=== PATIENT | male | born 1955 | race Caucasian/White ===

== ENCOUNTER 2019-02-22 07:10 | Day surgery (SDC) | payer OTHER ==
[~2019-02-22] VITALS: Ht 180.3 cm; Wt 89.4 kg
[~2019-02-22 07:10] MED LIST: Daily Multiple1 EACH PO; FISH1000; GLUCOSAMINE MS PO; Omega 3 1,0001 EACH PO; Sleep Aid25 M1 PO
== END 2019-02-22 09:13 | disposition home or self-care (01) ==
LOC: ORSCSDS 07:10
PROVIDERS: Internal Medicine Gastroenterology
PROC: 0DBL8ZX Excision of Transverse Colon, Via Natural or Artificial Opening Endoscopic, Diagnostic (ICD-10-PCS; principal; 2019-02-22 08:30)
PROC: 0DBM8ZX Excision of Descending Colon, Via Natural or Artificial Opening Endoscopic, Diagnostic (ICD-10-PCS; principal; 2019-02-22 08:30)
DX: Z12.11 Encounter for screening for malignant neoplasm of colon (principal); D12.3 Benign neoplasm of transverse colon; D12.4 Benign neoplasm of descending colon; K57.30 Diverticulosis of large intestine without perforation or abscess without bleeding; K64.8 Other hemorrhoids; Z85.038 Personal history of other malignant neoplasm of large intestine; Z86.010 Personal history of colon polyps; E78.5 Hyperlipidemia, unspecified
CPT/HCPCS: 88305; J0461; J2405; J2704; J7120

== ENCOUNTER → 2019-04-27 | Outpatient (CLI) | payer OTHER ==
[2019-04-27 10:29] LABS: Source, Urine Clean Catch
[2019-04-27 10:45] LABS: Appearance, Urine Clear (Clear); Bilirubin, Urine Neg (Neg); Blood, Urine Neg (Neg); Color, Urine Yellow (P-Yellow); Glucose Qualitative, Urine Neg (Normal); Ketones, Urine Neg (Neg); Leukocyte Esterase, Urine Neg (Neg); Nitrite, Urine Neg (Neg); Protein, Urine Neg (Neg); Urobilinogen, Urine NORM (Normal)
== END | disposition home or self-care (01) ==
LOC: LAB EV 10:22 → LAB FUT 04-20 12:05
PROVIDERS: Internal Medicine Gastroenterology
DX: E88.09 Other disorders of plasma-protein metabolism, not elsewhere classified (principal)
CPT/HCPCS: 81003

== ENCOUNTER → 2020-11-01 | Outpatient (CLI) | payer MEDICARE | LOC: LAB SHORT 14:10 → LAB 14:10 | DX: L08.9 Local infection of the skin and subcutaneous tissue, unspecified (principal) | CPT/HCPCS: 87070; 87077; 87147; 87186; 87205 ==

== ENCOUNTER 2020-11-22 08:48 | Day surgery (SDC) | payer MEDICARE ==
[~2020-11-22] VITALS: Ht 180.3 cm; Wt 90.9 kg
--- NOTE | 2020-11-22 10:30 | NUR ---
11/22/20 1030 Samantha Mandujano PT HAS 2 SMALL OPEN WOUNDS ON HIS ABDOMEN. THEY ARE SCABBED OVER. BOBBY WIPE AND CLIPPERS WERE NOT USED ON THE AREA.
--- NOTE | 2020-11-22 13:02 | NUR ---
11/22/20 1302 Kamilla Arredondo NO SPECIMEN PER DR. SAMARIA M.D. RBVO Rosmery ARREDONDO RN
== END 2020-11-22 14:00 | disposition home or self-care (01) ==
LOC: ORSCSDS 08:48 → ORD 11-24 07:30 → ORSCMMR 11-24 07:30
PROVIDERS: Surgery
PROC: 0WUF0JZ Supplement Abdominal Wall with Synthetic Substitute, Open Approach (ICD-10-PCS; principal; 2020-11-22 10:00)
DX: K43.2 Incisional hernia without obstruction or gangrene (principal); E78.5 Hyperlipidemia, unspecified
CPT/HCPCS: A9270; C1781; J0690; J1100; J1885; J2250; J2370; J2405; J2704; J3010; J7120

== ENCOUNTER → 2021-01-31 | Outpatient (CLI) | payer MEDICARE ==
[2021-01-31 09:47] LABS: Hemoglobin 16.3 g/dL (13.5-17.5); Mean Corpuscular HGB 30.2 pg (26.0-34.0); Mean Corpuscular HGB Conc 33.3 g/dL (31.5-36.5); Mean Corpuscular Volume 91 fL (80-100); RDW Coefficient Variation 14.4 % (11.7-14.2); RDW Standard Deviation 47.8 fL (35.1-46.3); White Blood Cell Count 3.29 K/mm3 (4.00-11.30)
[2021-01-31 10:22] LABS: Platelet Count 97 K/mm3 (150-400)
[2021-01-31 10:50] LABS: BAND PERCENT MAN 12 % (0-8); BASOPHILS ABSOLUTE MAN 0.06 K/mm3 (0.00-0.23); BASOPHILS PERCENT MAN 2 % (0-2); EOSINOPHILS ABSOLUTE MAN 0.09 K/mm3 (0.00-0.68); EOSINOPHILS PERCENT MAN 3 % (0-6); LYMPHOCYTES ABSOLUTE MAN 0.55 K/mm3 (0.84-5.20); LYMPHOCYTES PERCENT MAN 17 % (21-46); MONOCYTES ABSOLUTE MAN 0.52 K/mm3 (0.16-1.47); MONOCYTES PERCENT MAN 16 % (4-13); NEUTROPHILS ABSOLUTE MAN 2.03 K/mm3 (1.96-9.15); SEG NEUTROPHILS PERCENT MAN 50 % (41-73); TOTAL CELLS COUNTED 100
== END | disposition home or self-care (01) ==
LOC: LAB 09:41 → LAB SHORT 09:41
PROVIDERS: Physician Assistant
DX: L03.311 Cellulitis of abdominal wall (principal)
CPT/HCPCS: 85025

== ENCOUNTER → 2021-02-13 | Outpatient (CLI) | payer MEDICARE | LOC: LAB SHORT 11:45 | DX: L08.9 Local infection of the skin and subcutaneous tissue, unspecified (principal); L92.0 Granuloma annulare; L53.8 Other specified erythematous conditions; L57.8 Other skin changes due to chronic exposure to nonionizing radiation; L81.4 Other melanin hyperpigmentation; L85.3 Xerosis cutis; Z71.89 Other specified counseling | CPT/HCPCS: 87070; 87077; 87186; 87205 ==

== ENCOUNTER → 2021-10-04 | Outpatient (CLI) | payer MEDICARE | END | disposition home or self-care (01) | LOC: LAB SHORT 13:54 → LAB 13:54 | DX: L92.0 Granuloma annulare (principal); L08.9 Local infection of the skin and subcutaneous tissue, unspecified; L57.8 Other skin changes due to chronic exposure to nonionizing radiation; L81.4 Other melanin hyperpigmentation; Z79.899 Other long term (current) drug therapy; Z71.89 Other specified counseling | CPT/HCPCS: 87070; 87077; 87186; 87205 ==

== ENCOUNTER → 2023-02-11 | Outpatient (CLI) | payer MEDICARE | LOC: LAB SHORT 13:15 → LAB 13:15 | DX: L08.0 Pyoderma (principal); T81.40XA Infection following a procedure, unspecified, initial encounter | CPT/HCPCS: 87070; 87077; 87186; 87205 ==

== ENCOUNTER → 2023-02-12 | Outpatient (CLI) | payer MEDICARE | END | disposition home or self-care (01) | LOC: LAB SHORT 14:22 → LAB 14:22 | DX: L98.9 Disorder of the skin and subcutaneous tissue, unspecified (principal) | CPT/HCPCS: 87071; 87075; 87076; 87185; 87205 ==

== ENCOUNTER → 2023-04-24 | Outpatient (CLI) | payer MEDICARE | END | disposition home or self-care (01) | LOC: LAB 12:11 → LAB SHORT 12:11 | DX: L08.9 Local infection of the skin and subcutaneous tissue, unspecified (principal) | CPT/HCPCS: 87070; 87077; 87186; 87205 ==

== ENCOUNTER 2023-05-15 08:33 | Day surgery (SDC) | payer MEDICARE | END 2023-05-15 22:47 | disposition home or self-care (01) | LOC: US 08:33 | DX: K74.69 Other cirrhosis of liver (principal); R18.8 Other ascites; K76.6 Portal hypertension | CPT/HCPCS: 49083 ==

== ENCOUNTER → 2023-05-22 | Outpatient (CLI) | payer MEDICARE | END | disposition home or self-care (01) | LOC: LAB 12:10 → LAB SHORT 12:10 | DX: L08.0 Pyoderma (principal) | CPT/HCPCS: 87070; 87077; 87186; 87205 ==

== ENCOUNTER 2023-05-30 08:33 | Day surgery (SDC) | payer MEDICARE | END 2023-05-30 23:01 | disposition home or self-care (01) | LOC: US 08:33 | DX: K76.6 Portal hypertension (principal); K74.69 Other cirrhosis of liver; R18.8 Other ascites | CPT/HCPCS: 76705 ==

== ENCOUNTER 2023-07-16 02:20 | Day surgery (SDC) | payer MEDICARE ==
[2023-07-16] MEDS ORDERED: Lidocaine HCl 4% Cream 5 GM ONE (10:34)
== END 2023-07-16 23:25 | disposition home or self-care (01) ==
LOC: WOUND 02:20
DX: S41.101D Unspecified open wound of right upper arm, subsequent encounter (principal); S51.802D Unspecified open wound of left forearm, subsequent encounter; X58.XXXD Exposure to other specified factors, subsequent encounter
CPT/HCPCS: A6213; A9270

== ENCOUNTER 2023-07-31 04:31 | Day surgery (SDC) | payer MEDICARE | END 2023-07-31 22:52 | disposition home or self-care (01) | LOC: WOUND 04:31 | DX: S51.802D Unspecified open wound of left forearm, subsequent encounter (principal); S41.101D Unspecified open wound of right upper arm, subsequent encounter; X58.XXXD Exposure to other specified factors, subsequent encounter | CPT/HCPCS: A6213; G0463 ==

== ENCOUNTER 2023-08-07 02:59 | Day surgery (SDC) | payer MEDICARE | END 2023-08-07 22:42 | disposition home or self-care (01) | LOC: WOUND 02:59 | DX: S41.101D Unspecified open wound of right upper arm, subsequent encounter (principal); S51.802D Unspecified open wound of left forearm, subsequent encounter; X58.XXXD Exposure to other specified factors, subsequent encounter | CPT/HCPCS: G0463 ==

== ENCOUNTER 2023-08-14 03:39 | Day surgery (SDC) | payer MEDICARE | END 2023-08-14 23:07 | disposition home or self-care (01) | LOC: WOUND 03:39 | DX: S51.802D Unspecified open wound of left forearm, subsequent encounter (principal); S41.101D Unspecified open wound of right upper arm, subsequent encounter | CPT/HCPCS: G0463 ==

== ENCOUNTER 2024-03-02 08:04 | Day surgery (SDC) | payer MEDICARE ==
[~2024-03-02] VITALS: Ht 172.7 cm; Wt 83.0 kg
--- NOTE | 2024-03-02 07:14 | NUR ---
03/02/24 [address] WALLER, SEE ANESTHESIA RECORDS.
[~2024-03-02 08:04] MED LIST changes: +CARV3.125 PO; +FURO20 PO; +Lactated Ringer's 1,000 ML IV SCH; +SPIR25 PO
[2024-03-02 09:36] VITALS: BP 136/67
--- NOTE | 2024-03-02 09:39 | NUR ---
History, Chart, Medications and Allergies reviewed before start of procedure. Patient confirms NPO status and agrees with scheduled surgery.
[2024-03-02] MEDS ORDERED: propofoL 20 ML IV ONE (09:53)
[2024-03-02 10:24] VITALS: BP 109/64
--- NOTE | 2024-03-02 10:39 | NUR ---
Discharge instructions reviewed with patient. Patient verbalizes understanding. Copy given to patient to take home. Patient States Post-Procedure ride home has been arranged. Discharged via wheelchair to private car for ride home.
== END 2024-03-02 10:40 | disposition home or self-care (01) ==
LOC: ORSCMMR 08:04 → ORD 09:30 → ORSCMMR 10:40
PROVIDERS: Internal Medicine Gastroenterology
PROC: 0DBP8ZX Excision of Rectum, Via Natural or Artificial Opening Endoscopic, Diagnostic (ICD-10-PCS; principal; 2024-03-02 09:30)
PROC: 0DBN8ZX Excision of Sigmoid Colon, Via Natural or Artificial Opening Endoscopic, Diagnostic (ICD-10-PCS; principal; 2024-03-02 09:30)
PROC: 0DBK8ZX Excision of Ascending Colon, Via Natural or Artificial Opening Endoscopic, Diagnostic (ICD-10-PCS; principal; 2024-03-02 09:30)
DX: Z12.11 Encounter for screening for malignant neoplasm of colon (principal); Z85.038 Personal history of other malignant neoplasm of large intestine; Z90.49 Acquired absence of other specified parts of digestive tract; Z86.0100 Personal history of colon polyps, unspecified; K63.5 Polyp of colon; D12.5 Benign neoplasm of sigmoid colon; D12.2 Benign neoplasm of ascending colon; K62.1 Rectal polyp; D61.818 Other pancytopenia; K76.6 Portal hypertension; Z79.899 Other long term (current) drug therapy
CPT/HCPCS: 88305; J2704; J7120

== ENCOUNTER 2024-05-04 | Day surgery (SDC) | payer MEDICARE ==
[~2024-05-04] MED LIST changes: -Lactated Ringer's 1,000 ML IV SCH
[2024-05-04] MEDS ORDERED: Lidocaine HCl 4% Cream 5 GM ONE (12:37)
== END 2024-05-04 23:00 ==
LOC: WOUND
DX: S81.801A Unspecified open wound, right lower leg, initial encounter (principal); S51.802A Unspecified open wound of left forearm, initial encounter; I10 Essential (primary) hypertension; X58.XXXA Exposure to other specified factors, initial encounter
CPT/HCPCS: A6213; A9270; G0463

== ENCOUNTER → 2024-05-04 | Outpatient (CLI) | payer MEDICARE | END | disposition home or self-care (01) | LOC: LAB 11:52 → LAB SHORT 11:52 | DX: L08.0 Pyoderma (principal) | CPT/HCPCS: 87070; 87077; 87186; 87205 ==

== ENCOUNTER 2024-05-11 01:37 | Day surgery (SDC) | payer MEDICARE ==
[2024-05-11] MEDS ORDERED: Lidocaine HCl 4% Cream 5 GM ONE (10:10)
== END 2024-05-11 23:00 | disposition home or self-care (01) ==
LOC: WOUND 01:37
DX: L97.812 Non-pressure chronic ulcer of other part of right lower leg with fat layer exposed (principal); L97.112 Non-pressure chronic ulcer of right thigh with fat layer exposed; L98.492 Non-pressure chronic ulcer of skin of other sites with fat layer exposed; L08.0 Pyoderma
CPT/HCPCS: A6213; A9270

== ENCOUNTER 2024-05-18 09:34 | Day surgery (SDC) | payer MEDICARE ==
[2024-05-18] MEDS ORDERED: Lidocaine HCl 4% Cream 5 GM ONE (14:51)
== END 2024-05-18 23:00 | disposition home or self-care (01) ==
LOC: WOUND 09:34
DX: L97.112 Non-pressure chronic ulcer of right thigh with fat layer exposed (principal); L97.212 Non-pressure chronic ulcer of right calf with fat layer exposed; L98.492 Non-pressure chronic ulcer of skin of other sites with fat layer exposed; L88 Pyoderma gangrenosum; D76.3 Other histiocytosis syndromes
CPT/HCPCS: A6213; A9270

== ENCOUNTER 2024-05-25 00:38 | Day surgery (SDC) | payer MEDICARE ==
[2024-05-25] MEDS ORDERED: Lidocaine HCl 4% Cream 5 GM ONE (13:32)
== END 2024-05-25 22:49 | disposition home or self-care (01) ==
LOC: WOUND
DX: L97.112 Non-pressure chronic ulcer of right thigh with fat layer exposed (principal); L97.212 Non-pressure chronic ulcer of right calf with fat layer exposed; L98.492 Non-pressure chronic ulcer of skin of other sites with fat layer exposed; L08.0 Pyoderma
CPT/HCPCS: A6213; A9270

== ENCOUNTER 2024-06-01 00:43 | Day surgery (SDC) | payer MEDICARE ==
[2024-06-01] MEDS ORDERED: Lidocaine HCl 4% Cream 5 GM ONE (12:43)
== END 2024-06-01 23:00 | disposition home or self-care (01) ==
LOC: WOUND 00:43
DX: L97.212 Non-pressure chronic ulcer of right calf with fat layer exposed (principal); L97.112 Non-pressure chronic ulcer of right thigh with fat layer exposed; L98.492 Non-pressure chronic ulcer of skin of other sites with fat layer exposed; L08.0 Pyoderma; D76.3 Other histiocytosis syndromes
CPT/HCPCS: A6213; A9270

== ENCOUNTER → 2024-06-07 | Outpatient (CLI) | payer MEDICARE ==
[~2024-06-07] MED LIST changes: +ACET500 PO; +Calcium Carbon500 MG PO
[2024-06-07 07:45] LABS: Hematocrit 34.8 % (37.0-53.0); Hemoglobin 11.4 g/dL (13.5-17.5); Mean Corpuscular HGB 30.5 pg (26.0-34.0); Mean Corpuscular HGB Conc 32.8 g/dL (31.5-36.5); Mean Corpuscular Volume 93 fL (80-100); Mean Platelet Volume 9.8 fL (9.1-12.4); Platelet Count 129 K/mm3 (150-400); RDW Coefficient Variation 17.3 % (11.7-14.2); RDW Standard Deviation 59.8 fL (35.1-46.3); Red Blood Cell Count 3.74 M/mm3 (4.30-5.90)
[2024-06-07 07:54] LABS: BASOPHILS ABSOLUTE AUTO 0.02 K/mm3 (0.00-0.23); BASOPHILS PERCENT AUTO 2 % (0-2); EOSINOPHILS PERCENT AUTO 0 % (0-6); IMMATURE GRAN ABSOLUTE AUTO 0.01 K/mm3 (0.00-0.10); IMMATURE GRAN PERCENT AUTO 1 % (0-1); LYMPHOCYTES ABSOLUTE AUTO 0.34 K/mm3 (0.84-5.20); LYMPHOCYTES PERCENT AUTO 35 % (21-46); MONOCYTES ABSOLUTE AUTO 0.21 K/mm3 (0.16-1.47); MONOCYTES PERCENT AUTO 22 % (4-13); NEUTROPHILS ABSOLUTE AUTO 0.38 K/mm3 (1.96-9.15); NEUTROPHILS PERCENT AUTO 40 % (41-73)
[2024-06-07 08:02] LABS: White Blood Cell Count 0.96 K/mm3 (4.00-11.30)
[2024-06-07 08:21] LABS: Albumin, Blood 2.1 g/dL (3.4-5.0); Albumin/Globulin Ratio 0.5 (0.8-1.8); Bilirubin, Total 1.4 mg/dL (0.1-1.0); Bun/Creatinine Ratio 28.9 (12.0-20.0); Calcium, Blood 8.2 mg/dL (8.5-10.1); Creatinine, Blood 1.35 mg/dL (0.60-1.20); Globulin, Blood 4.3 g/dL (2.2-4.0); Total Protein, Blood 6.4 g/dL (6.4-8.2)
== END ==
LOC: LAB SHORT 07:40 → LAB 07:40
PROVIDERS: Physician Assistant
DX: R11.10 Vomiting, unspecified (principal)
CPT/HCPCS: 80053; 83690; 85025

== ENCOUNTER 2024-06-08 00:39 | Day surgery (SDC) | payer MEDICARE ==
[~2024-06-08 00:39] MED LIST changes: -ACET500 PO; -Calcium Carbon500 MG PO
[2024-06-08] MEDS ORDERED: Lidocaine HCl 4% Cream 5 GM ONE ×2 (12:35→12:37)
== END 2024-06-08 23:00 | disposition home or self-care (01) ==
LOC: WOUND
DX: L97.813 Non-pressure chronic ulcer of other part of right lower leg with necrosis of muscle (principal); L97.112 Non-pressure chronic ulcer of right thigh with fat layer exposed; L98.492 Non-pressure chronic ulcer of skin of other sites with fat layer exposed; L08.0 Pyoderma
CPT/HCPCS: A6213; A9270

== ENCOUNTER 2024-06-12 08:36 | Emergency (ER) | payer MEDICARE ==
[~2024-06-12] VITALS: Ht 177.8 cm; Wt 95.2 kg
[2024-06-12 09:18] LABS: BASOPHILS PERCENT AUTO 0 % (0-2); EOSINOPHILS ABSOLUTE AUTO 0.03 K/mm3 (0.00-0.68); EOSINOPHILS PERCENT AUTO 1 % (0-6); Hematocrit 26.7 % (37.0-53.0); IMMATURE GRAN ABSOLUTE AUTO 0.02 K/mm3 (0.00-0.10); IMMATURE GRAN PERCENT AUTO 1 % (0-1); LYMPHOCYTES PERCENT AUTO 21 % (21-46); MONOCYTES PERCENT AUTO 21 % (4-13); Mean Corpuscular HGB 30.7 pg (26.0-34.0); Mean Corpuscular HGB Conc 33.7 g/dL (31.5-36.5); Mean Corpuscular Volume 91 fL (80-100); Mean Platelet Volume 10.2 fL (9.1-12.4); NEUTROPHILS ABSOLUTE AUTO 1.64 K/mm3 (1.96-9.15); NEUTROPHILS PERCENT AUTO 57 % (41-73); NRBC ABSOLUTE 0.02 K/mm3 (0.00-0.02); NRBC Auto 0.7 /100 WBC (0.0-0.2); Platelet Count 125 K/mm3 (150-400); RDW Coefficient Variation 16.5 % (11.7-14.2); RDW Standard Deviation 54.6 fL (35.1-46.3); Red Blood Cell Count 2.93 M/mm3 (4.30-5.90); White Blood Cell Count 2.89 K/mm3 (4.00-11.30)
[2024-06-12] MEDS ORDERED: Ondansetron HCl 2 MG / ML 2ML Vial IV ONE (09:25)
[2024-06-12] MEDS ORDERED: Morphine Sulfate 4 MG/1 ML Injection IV ONE (09:25)
[2024-06-12 09:50] LABS: Albumin, Blood 2.1 g/dL (3.4-5.0); Albumin/Globulin Ratio 0.5 (0.8-1.8); Bilirubin, Total 1.4 mg/dL (0.1-1.0); Bun/Creatinine Ratio 17.7 (12.0-20.0); Calcium, Blood 7.9 mg/dL (8.5-10.1); Creatinine, Blood 1.24 mg/dL (0.60-1.20); Total Protein, Blood 6.1 g/dL (6.4-8.2)
[2024-06-12 09:57] LABS: Influenza B, PCR NEGATIVE (NEGATIVE); Resp Syncytial Virus, PCR NEGATIVE (NEGATIVE); SARS-Cov-2 (COVID-19) PCR, MMC NEGATIVE (NEGATIVE)
[2024-06-12 10:08] LABS: Influenza A, PCR POSITIVE (NEGATIVE)
[2024-06-12] MEDS ORDERED: NS 1,000 ML IV SCH (11:35)
[2024-06-12] MEDS ORDERED: Calcium Carbon500 MG PO (12:42)
[2024-06-12] MEDS ORDERED: ACET500 PO (12:42)
[2024-06-12 12:52] VITALS: BP 101/54
== END 2024-06-12 13:09 | disposition home or self-care (01) ==
LOC: ER 08:36
PROVIDERS: Student in an Organized Health Care Education/Training Program
DX: J10.1 Influenza due to other identified influenza virus with other respiratory manifestations (principal); E86.0 Dehydration; E83.51 Hypocalcemia; D64.9 Anemia, unspecified; Z79.899 Other long term (current) drug therapy
CPT/HCPCS: 0241U; 71046; 74177; 80053; 83690; 85025; 93005; 93010; 96361; 96374-59; 96375; 99284-25; J2270; J2405; J7030; Q9967

== ENCOUNTER 2024-06-15 07:00 | Emergency (ER) | payer MEDICARE ==
[~2024-06-15] VITALS: Ht 177.8 cm; Wt 81.0 kg
[~2024-06-15 07:00] MED LIST changes: +ACET500 PO; +Calcium Carbon500 MG PO
[2024-06-15] MEDS ORDERED: AMOCLA875 PO (07:20)
[2024-06-15] MEDS ORDERED: HYDHCL25 PO (07:21)
[2024-06-15] MEDS ORDERED: Ondansetron HCl 2 MG / ML 2ML Vial IV ONE ×2 (08:25→09:20)
[2024-06-15] MEDS ORDERED: NS 1,000 ML IV SCH (08:30)
[2024-06-15 08:49] LABS: BASOPHILS ABSOLUTE AUTO 0.01 K/mm3 (0.00-0.23); BASOPHILS PERCENT AUTO 0 % (0-2); EOSINOPHILS ABSOLUTE AUTO 0.05 K/mm3 (0.00-0.68); EOSINOPHILS PERCENT AUTO 1 % (0-6); Mean Corpuscular HGB 29.8 pg (26.0-34.0); Mean Corpuscular HGB Conc 32.9 g/dL (31.5-36.5); Mean Corpuscular Volume 91 fL (80-100); Mean Platelet Volume 10.4 fL (9.1-12.4); NRBC ABSOLUTE 0.12 K/mm3 (0.00-0.02); NRBC Auto 1.6 /100 WBC (0.0-0.2); Platelet Count 252 K/mm3 (150-400); RDW Standard Deviation 55.4 fL (35.1-46.3); Red Blood Cell Count 1.91 M/mm3 (4.30-5.90); White Blood Cell Count 7.51 K/mm3 (4.00-11.30)
[2024-06-15 08:50] LABS: Hemoglobin 5.7 g/dL (13.5-17.5); IMMATURE GRAN ABSOLUTE AUTO 0.19 K/mm3 (0.00-0.10); IMMATURE GRAN PERCENT AUTO 3 % (0-1); LYMPHOCYTES ABSOLUTE AUTO 1.28 K/mm3 (0.84-5.20); LYMPHOCYTES PERCENT AUTO 17 % (21-46); MONOCYTES ABSOLUTE AUTO 1.03 K/mm3 (0.16-1.47); MONOCYTES PERCENT AUTO 14 % (4-13); NEUTROPHILS ABSOLUTE AUTO 4.95 K/mm3 (1.96-9.15); NEUTROPHILS PERCENT AUTO 66 % (41-73)
[2024-06-15 08:52] LABS: Hematocrit 17.3 % (37.0-53.0)
[2024-06-15 09:09] LABS: BAND PERCENT MAN 1 % (0-8); BASOPHILS PERCENT MAN 0 % (0-2); EOSINOPHILS ABSOLUTE MAN 0.07 K/mm3 (0.00-0.68); EOSINOPHILS PERCENT MAN 1 % (0-6); LYMPHOCYTES PERCENT MAN 12 % (21-46); METAMYELOCYTE ABSOLUTE MAN 0.07 K/mm3 (0.00-0.00); METAMYELOCYTE PERCENT MAN 1 % (0-0); MONOCYTES ABSOLUTE MAN 1.12 K/mm3 (0.16-1.47); MONOCYTES PERCENT MAN 15 % (4-13); NEUTROPHILS ABSOLUTE MAN 5.33 K/mm3 (1.96-9.15); SEG NEUTROPHILS PERCENT MAN 70 % (41-73); TOTAL CELLS COUNTED 100
[2024-06-15 09:10] LABS: Albumin, Blood 1.7 g/dL (3.4-5.0); Albumin/Globulin Ratio 0.5 (0.8-1.8); Bilirubin, Total 1.2 mg/dL (0.1-1.0); Calcium, Blood 7.5 mg/dL (8.5-10.1); Creatinine, Blood 1.14 mg/dL (0.60-1.20); Globulin, Blood 3.4 g/dL (2.2-4.0); Potassium, Blood 4.8 mmol/L (3.5-5.5); Total Protein, Blood 5.1 g/dL (6.4-8.2)
[2024-06-15 09:50] LABS: Source, Urine Clean Catch
[2024-06-15] MEDS ORDERED: Metoclopramide HCl 5MG / ML 2ML Vial IV ONE (09:50)
[2024-06-15] MEDS ORDERED: Pantoprazole Sodium 40 MG in NS 50 ML IV SCH (10:00)
[2024-06-15 10:02] LABS: Appearance, Urine Clear (Clear); Bilirubin, Urine Neg (Neg); Blood, Urine Neg (Neg); Color, Urine Yellow (P-Yellow); Glucose Qualitative, Urine Neg (Neg); Ketones, Urine 1+ (Neg); Leukocyte Esterase, Urine Neg (Neg); Nitrite, Urine Neg (Neg); Protein, Urine Neg (Neg); Specific Gravity, Urine 1.015 (1.003-1.022); Urobilinogen, Urine 1+ (Normal)
[2024-06-15] MEDS ORDERED: Droperidol 5 mg/2 ml Vial IV ONE (10:35)
[2024-06-15 10:50] VITALS: BP 114/56
== END 2024-06-15 14:32 | disposition short-term general hospital (02) ==
LOC: ER 07:00
PROVIDERS: Physician Assistant
DX: K92.2 Gastrointestinal hemorrhage, unspecified (principal); Z79.899 Other long term (current) drug therapy
CPT/HCPCS: 36430; 80053; 81003; 82140; 82272; 83690; 85025; 86850; 86900; 86901; 86923; 93005; 93010; 96361; 96365; 96366; 96375; 96376; 99285-25; J1790; J2405; J2470; J2765; J7030; P9016

== ENCOUNTER 2024-06-21 01:42 | Day surgery (SDC) | payer MEDICARE ==
[~2024-06-21 01:42] MED LIST changes: +AMOCLA875 PO; +HYDHCL25 PO
[2024-06-21] MEDS ORDERED: Lidocaine HCl 4% Cream 5 GM ONE (08:56)
== END 2024-06-21 23:19 | disposition home or self-care (01) ==
LOC: WOUND 01:42
DX: L97.815 Non-pressure chronic ulcer of other part of right lower leg with muscle involvement without evidence of necrosis (principal); L98.492 Non-pressure chronic ulcer of skin of other sites with fat layer exposed; D76.3 Other histiocytosis syndromes; L08.0 Pyoderma; K76.9 Liver disease, unspecified
CPT/HCPCS: A6213; A9270

== ENCOUNTER 2024-06-28 02:24 | Day surgery (SDC) | payer MEDICARE ==
[2024-06-28] MEDS ORDERED: Lidocaine HCl 4% Cream 5 GM ONE (10:04)
== END 2024-06-28 22:49 | disposition home or self-care (01) ==
LOC: WOUND 02:24
DX: L97.813 Non-pressure chronic ulcer of other part of right lower leg with necrosis of muscle (principal); L97.812 Non-pressure chronic ulcer of other part of right lower leg with fat layer exposed; L98.492 Non-pressure chronic ulcer of skin of other sites with fat layer exposed; L97.112 Non-pressure chronic ulcer of right thigh with fat layer exposed; L08.0 Pyoderma
CPT/HCPCS: A6213; A9270

== ENCOUNTER 2024-07-05 00:29 | Day surgery (SDC) | payer MEDICARE ==
[2024-07-05] MEDS ORDERED: Lidocaine HCl 4% Cream 5 GM ONE (09:43)
== END 2024-07-05 23:35 | disposition home or self-care (01) ==
LOC: WOUND 00:29
DX: L08.0 Pyoderma (principal); L97.815 Non-pressure chronic ulcer of other part of right lower leg with muscle involvement without evidence of necrosis; D76.3 Other histiocytosis syndromes; K76.9 Liver disease, unspecified
CPT/HCPCS: A6213; A9270

== ENCOUNTER 2024-07-12 01:09 | Day surgery (SDC) | payer MEDICARE | END 2024-07-12 23:00 | disposition home or self-care (01) | LOC: WOUND 01:09 | DX: L97.815 Non-pressure chronic ulcer of other part of right lower leg with muscle involvement without evidence of necrosis (principal); L97.812 Non-pressure chronic ulcer of other part of right lower leg with fat layer exposed; L08.0 Pyoderma | CPT/HCPCS: A6213 ==

== ENCOUNTER 2024-07-19 01:41 | Day surgery (SDC) | payer MEDICARE ==
[2024-07-19] MEDS ORDERED: Lidocaine HCl 4% Cream 5 GM ONE (09:47)
== END 2024-07-19 23:00 | disposition home or self-care (01) ==
LOC: WOUND 01:41
DX: L97.815 Non-pressure chronic ulcer of other part of right lower leg with muscle involvement without evidence of necrosis (principal); L97.812 Non-pressure chronic ulcer of other part of right lower leg with fat layer exposed; L08.0 Pyoderma
CPT/HCPCS: A6213; A9270

== ENCOUNTER 2024-07-26 12:26 | Day surgery (SDC) | payer MEDICARE ==
[~2024-07-26 12:26] MED LIST changes: +Lidocaine HCl 4% Cream 5 GM ONE
== END 2024-07-26 23:00 | disposition home or self-care (01) ==
LOC: WOUND 12:26
DX: L97.815 Non-pressure chronic ulcer of other part of right lower leg with muscle involvement without evidence of necrosis (principal); L08.0 Pyoderma
CPT/HCPCS: A6213; A9270

== ENCOUNTER 2024-08-02 08:30 | Day surgery (SDC) | payer MEDICARE ==
[~2024-08-02 08:30] MED LIST changes: -Lidocaine HCl 4% Cream 5 GM ONE
[2024-08-02] MEDS ORDERED: Lidocaine HCl 4% Cream 5 GM ONE (09:59)
== END 2024-08-02 23:00 | disposition home or self-care (01) ==
LOC: WOUND 08:30
DX: L97.813 Non-pressure chronic ulcer of other part of right lower leg with necrosis of muscle (principal); L97.812 Non-pressure chronic ulcer of other part of right lower leg with fat layer exposed; L08.0 Pyoderma
CPT/HCPCS: A6213; A9270; G0463

== ENCOUNTER 2024-08-09 05:52 | Day surgery (SDC) | payer MEDICARE ==
[2024-08-09] MEDS ORDERED: Lidocaine HCl 4% Cream 5 GM ONE (09:52)
== END 2024-08-09 23:00 | disposition home or self-care (01) ==
LOC: WOUND 05:52
DX: L97.815 Non-pressure chronic ulcer of other part of right lower leg with muscle involvement without evidence of necrosis (principal); L08.0 Pyoderma; D76.3 Other histiocytosis syndromes
CPT/HCPCS: A6213; A9270; G0463

== ENCOUNTER 2024-08-16 03:32 | Day surgery (SDC) | payer MEDICARE ==
[2024-08-16] MEDS ORDERED: Lidocaine HCl 4% Cream 5 GM ONE (09:52)
== END 2024-08-16 23:11 | disposition home or self-care (01) ==
LOC: WOUND 03:32
DX: L97.813 Non-pressure chronic ulcer of other part of right lower leg with necrosis of muscle (principal); L97.812 Non-pressure chronic ulcer of other part of right lower leg with fat layer exposed; L08.0 Pyoderma
CPT/HCPCS: A6213; A9270

== ENCOUNTER 2024-08-23 01:40 | Day surgery (SDC) | payer MEDICARE ==
[2024-08-23] MEDS ORDERED: Lidocaine HCl 4% Cream 5 GM ONE (09:48)
== END 2024-08-23 23:16 | disposition home or self-care (01) ==
LOC: WOUND 01:40
DX: L97.815 Non-pressure chronic ulcer of other part of right lower leg with muscle involvement without evidence of necrosis (principal); L97.812 Non-pressure chronic ulcer of other part of right lower leg with fat layer exposed; L08.0 Pyoderma
CPT/HCPCS: A6213; A9270; G0463

== ENCOUNTER 2024-09-06 03:39 | Day surgery (SDC) | payer MEDICARE | END 2024-09-06 23:00 | disposition home or self-care (01) | LOC: WOUND 03:39 | DX: L97.815 Non-pressure chronic ulcer of other part of right lower leg with muscle involvement without evidence of necrosis (principal); L97.812 Non-pressure chronic ulcer of other part of right lower leg with fat layer exposed; L08.0 Pyoderma; D70.9 Neutropenia, unspecified | CPT/HCPCS: 36415; 80053; 82784; 84155; 84165; 85025; 86334; A6196; A6213; G0463 ==

== ENCOUNTER 2024-09-13 03:20 | Day surgery (SDC) | payer MEDICARE | END 2024-09-13 23:43 | disposition home or self-care (01) | LOC: WOUND 03:20 | DX: L97.812 Non-pressure chronic ulcer of other part of right lower leg with fat layer exposed (principal); L08.0 Pyoderma | CPT/HCPCS: A6196; A6213; G0463 ==

== ENCOUNTER 2024-10-04 08:00 | Day surgery (SDC) | payer MEDICARE | END 2024-10-04 23:00 | disposition home or self-care (01) | LOC: WOUND 08:00 | DX: L08.0 Pyoderma (principal); L97.822 Non-pressure chronic ulcer of other part of left lower leg with fat layer exposed | CPT/HCPCS: A6213 ==

== ENCOUNTER 2024-10-11 04:47 | Day surgery (SDC) | payer MEDICARE ==
[2024-10-11] MEDS ORDERED: Lidocaine HCl 4% Cream 5 GM ONE (11:03)
== END 2024-10-11 23:00 | disposition home or self-care (01) ==
LOC: WOUND
DX: L97.822 Non-pressure chronic ulcer of other part of left lower leg with fat layer exposed (principal); L97.825 Non-pressure chronic ulcer of other part of left lower leg with muscle involvement without evidence of necrosis; L08.0 Pyoderma
CPT/HCPCS: A6213; A9270

== ENCOUNTER 2024-10-25 01:01 | Day surgery (SDC) | payer MEDICARE ==
[2024-10-25] MEDS ORDERED: Lidocaine HCl 4% Cream 5 GM ONE (10:54)
== END 2024-10-25 23:00 | disposition home or self-care (01) ==
LOC: WOUND 01:01
DX: L08.0 Pyoderma (principal); L97.823 Non-pressure chronic ulcer of other part of left lower leg with necrosis of muscle; L98.492 Non-pressure chronic ulcer of skin of other sites with fat layer exposed
CPT/HCPCS: A6213; A9270

== ENCOUNTER 2024-11-01 00:47 | Day surgery (SDC) | payer MEDICARE | END 2024-11-01 23:00 | disposition home or self-care (01) | LOC: WOUND 00:47 | DX: L97.822 Non-pressure chronic ulcer of other part of left lower leg with fat layer exposed (principal); L97.825 Non-pressure chronic ulcer of other part of left lower leg with muscle involvement without evidence of necrosis; L98.492 Non-pressure chronic ulcer of skin of other sites with fat layer exposed; L08.0 Pyoderma | CPT/HCPCS: A6213 ==

== ENCOUNTER 2024-11-08 00:51 | Day surgery (SDC) | payer MEDICARE ==
[2024-11-08] MEDS ORDERED: Lidocaine HCl 4% Cream 5 GM ONE (10:22)
== END 2024-11-08 23:00 | disposition home or self-care (01) ==
LOC: WOUND 00:51
DX: L97.822 Non-pressure chronic ulcer of other part of left lower leg with fat layer exposed (principal); L97.122 Non-pressure chronic ulcer of left thigh with fat layer exposed; L97.823 Non-pressure chronic ulcer of other part of left lower leg with necrosis of muscle; L98.492 Non-pressure chronic ulcer of skin of other sites with fat layer exposed; L08.0 Pyoderma
CPT/HCPCS: A6213; A9270

== ENCOUNTER 2024-11-15 00:35 | Day surgery (SDC) | payer MEDICARE ==
[2024-11-15] MEDS ORDERED: Lidocaine HCl 4% Cream 5 GM ONE (09:58)
== END 2024-11-15 23:00 | disposition home or self-care (01) ==
LOC: WOUND 00:35
DX: L08.0 Pyoderma (principal); D76.3 Other histiocytosis syndromes
CPT/HCPCS: A6213; A9270

== ENCOUNTER 2024-11-30 01:01 | Day surgery (SDC) | payer MEDICARE | END 2024-11-30 23:00 | disposition home or self-care (01) | LOC: WOUND 01:01 | DX: L08.0 Pyoderma (principal); L97.822 Non-pressure chronic ulcer of other part of left lower leg with fat layer exposed; L97.823 Non-pressure chronic ulcer of other part of left lower leg with necrosis of muscle | CPT/HCPCS: A6213; G0463 ==

== ENCOUNTER 2024-12-13 01:06 | Day surgery (SDC) | payer MEDICARE | END 2024-12-13 23:00 | disposition home or self-care (01) | LOC: WOUND 01:06 | DX: L08.0 Pyoderma (principal); D76.3 Other histiocytosis syndromes; K76.9 Liver disease, unspecified | CPT/HCPCS: A6213; G0463 ==

== ENCOUNTER 2024-12-20 02:48 | Day surgery (SDC) | payer MEDICARE | END 2024-12-20 23:00 | disposition home or self-care (01) | LOC: WOUND 02:48 | DX: L08.0 Pyoderma (principal); L97.822 Non-pressure chronic ulcer of other part of left lower leg with fat layer exposed; L98.492 Non-pressure chronic ulcer of skin of other sites with fat layer exposed | CPT/HCPCS: G0463 ==

== ENCOUNTER 2025-03-01 01:20 | Day surgery (SDC) | payer MEDICARE ==
[2025-03-01] MEDS ORDERED: Lidocaine HCl 4% Cream 5 GM ONE (08:05)
== END 2025-03-01 22:00 | disposition home or self-care (01) ==
LOC: WOUND 01:20
DX: L97.822 Non-pressure chronic ulcer of other part of left lower leg with fat layer exposed (principal); L08.0 Pyoderma; K74.60 Unspecified cirrhosis of liver; D76.3 Other histiocytosis syndromes; I10 Essential (primary) hypertension; Z90.49 Acquired absence of other specified parts of digestive tract
CPT/HCPCS: A6213; A9270; G0463

== ENCOUNTER 2025-03-08 02:27 | Day surgery (SDC) | payer MEDICARE | END 2025-03-08 23:24 | disposition home or self-care (01) | LOC: WOUND 02:27 | DX: L97.822 Non-pressure chronic ulcer of other part of left lower leg with fat layer exposed (principal); L08.0 Pyoderma; K74.60 Unspecified cirrhosis of liver; D76.3 Other histiocytosis syndromes | CPT/HCPCS: A6213; G0463 ==

== ENCOUNTER 2025-03-15 02:35 | Day surgery (SDC) | payer MEDICARE | END 2025-03-15 23:17 | disposition home or self-care (01) | LOC: WOUND 02:35 | DX: L08.0 Pyoderma (principal); K74.60 Unspecified cirrhosis of liver; D76.3 Other histiocytosis syndromes | CPT/HCPCS: A6213; G0463 ==

== ENCOUNTER 2025-04-05 09:45 | Day surgery (SDC) | payer MEDICARE ==
[2025-04-05] MEDS ORDERED: Lidocaine HCl 4% Cream 5 GM ONE (09:54)
== END 2025-04-05 23:00 | disposition home or self-care (01) ==
LOC: WOUND 09:45
DX: L98.A11 Non-pressure chronic ulcer of right upper arm (principal); L08.0 Pyoderma; K74.60 Unspecified cirrhosis of liver
CPT/HCPCS: A6213; A9270